=== PATIENT | male | born 2005 | race African-American/Black ===

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

== ENCOUNTER 2024-05-19 21:38 | Emergency (ER) | payer OTHER ==
[~2024-05-19] VITALS: Ht 175.3 cm; Wt 106.8 kg
[~2024-05-19 21:38] MED LIST changes: +OSEL75CA45 PO; -TOBR5DRO44 OU
[2024-05-19 21:51] VITALS: TEMP 98.2
[2024-05-19] MEDS: ACETAMINOPHEN/CODEINE 300-30 MG TABLET PO ONE (23:04)
[2024-05-19] MEDS: BACITRACIN 0.9 GM PACKET OINTMENT TP ONE (23:04)
[2024-05-19] MEDS: LIDOCAINE 1% 10 ML VIAL SQ ONE (23:04)
[2024-05-20] MEDS ORDERED: ACET-2080 PO (00:33)
[2024-05-20] MEDS ORDERED: BACI28.410 TP (00:33)
[2024-05-20 00:43] VITALS: BP 125/77; PULSE 75; RESP 15; O2SAT 98
== END 2024-05-20 00:44 | disposition home or self-care (01) ==
LOC: EMS 21:38
DX: S61.411A Laceration without foreign body of right hand, initial encounter (principal); J45.909 Unspecified asthma, uncomplicated; G43.909 Migraine, unspecified, not intractable, without status migrainosus; Z98.890 Other specified postprocedural states; Z88.6 Allergy status to analgesic agent; W22.8XXA Striking against or struck by other objects, initial encounter; Y93.89 Activity, other specified; Y92.89 Other specified places as the place of occurrence of the external cause; Y99.8 Other external cause status
CPT/HCPCS: 99283; 73130; 12004; J3490

== ENCOUNTER 2024-06-04 13:02 | Emergency (ER) | payer OTHER ==
[~2024-06-04] VITALS: Ht 175.3 cm; Wt 106.8 kg
[~2024-06-04 13:02] MED LIST changes: +ACET-2080 PO; +BACI28.410 TP
[2024-06-04 13:06] VITALS: TEMP 98.5
[2024-06-04 13:19] VITALS: BP 133/75; PULSE 69; RESP 17; O2SAT 98
== END 2024-06-04 13:46 | disposition home or self-care (01) ==
LOC: EMS 13:03
DX: S61.411D Laceration without foreign body of right hand, subsequent encounter (principal); Z48.02 Encounter for removal of sutures; J45.909 Unspecified asthma, uncomplicated; Z88.6 Allergy status to analgesic agent; X58.XXXD Exposure to other specified factors, subsequent encounter
CPT/HCPCS: 99281; Z7502